=== PATIENT | male | born 1990 ===

== ENCOUNTER 2018-06-19 19:02 | Emergency (ER) | payer BC ==
[2018-06-19 19:14] VITALS: BP 106/66; PULSE 61; RESP 16; TEMP 98.3; O2SAT 98
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
--- NOTE | 2018-06-20 13:59 | RAD ---
Date of service: 06/19/2018 PROCEDURE: Right Foot Radiographs. HISTORY: trauma COMPARISON: None. TECHNIQUE: 3 views obtained. FINDINGS: BONES: Normal. No fracture. JOINTS: Normal. SOFT TISSUES: Normal. OTHER FINDINGS: None. IMPRESSION: Normal right foot radiographs.
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
== END 2018-06-19 20:56 | disposition home or self-care (01) ==
LOC: H.ER 19:02
DX: S99.911A Unspecified injury of right ankle, initial encounter (principal); W23.0XXA Caught, crushed, jammed, or pinched between moving objects, initial encounter